=== PATIENT | female | born 1960 | race Caucasian/White ===

== ENCOUNTER 2016-06-19 14:13 | Emergency (ER) | payer MEDICAID ==
[~2016-06-19] VITALS: Ht 167.6 cm; Wt 100.0 kg
[~2016-06-19 14:13] MED LIST: CYMB30CA PO; CYMB60CA PO; DIAZ5TAB PO; FURO1TAB93 PO; GABA300C3 PO; LISI-363 PO; LORTA5 PO; REME15TA PO; TAB-TAB PO; VITA-13 PO
[2016-06-19 14:21] VITALS: BP 155/113; PULSE 89; RESP 16; TEMP 98.7; O2SAT 96
[2016-06-19] MEDS ORDERED: HYDR-3534 PO (15:29)
[2016-06-19] MEDS ORDERED: CIPR-9 PO (15:29)
[2016-06-19] MEDS ORDERED: REME30TA PO (15:29)
[2016-06-19] MEDS ORDERED: GABA300C5 PO (15:29)
[2016-06-19] MEDS ORDERED: DIAZ5 PO (15:29)
[2016-06-19] MEDS ORDERED: CYMB60CA PO (15:29)
[2016-06-19] MEDS ORDERED: MULTTAB67 PO (15:29)
[2016-06-19] MEDS ORDERED: CYMB30CA PO (15:29)
[2016-06-19] MEDS ORDERED: RESP: ALBUTEROL 2.5 MG/IPRATROPIUM 0.5 MG NEB (SCH) INH ONE (15:45)
--- NOTE | 2016-06-19 16:28 | RADHPO ---
EXAM DATE/TIME: 06/19/2016 16:06 [place] COMPARISON: CHEST PA & LAT, December 12, 2015, 14:05. INDICATIONS : Cough. MEDICAL HISTORY : None. SURGICAL HISTORY : Mastectomy, right. Coronary angioplasty ENCOUNTER: Initial ACUITY: 3 weeks PAIN SCORE: 5/10 LOCATION: Bilateral chest FINDINGS: A single view of the chest demonstrates the lungs to be symmetrically aerated without evidence of mas s, infiltrate or effusion. The cardiomediastinal contours are unremarkable. Osseous structures are intact. CONCLUSION: 1. No acute cardiopulmonary findings identified. Trenton Ordonez MD on June 19, 2016 at 16:26 Board Certified Radiologist. This report was verified electronically.
[2016-06-19] MEDS ORDERED: ZITHTAB PO (17:03)
[2016-06-19] MEDS ORDERED: VENTAER INH (17:03)
--- NOTE | 2016-06-19 17:03 | PD ---
HPI Chief Complaint: Cold / Flu Symptoms Time Seen by Provider: 15:45 Travel History International Travel<30 days: No Contact w/Intl Traveler<30days: No Traveled to known affect area: No History of Present Illness HPI Patient comes in complaining of cough and congestion ongoing for approximately 3 weeks. Patient use [id number] medicines for symptomatic relief with some improvement. However, feels her symptoms seem to be getting worse. Cough is occasionally productive. Patient had associated headache and generalized body aches. Denies any chest pain, shortness of breath, nausea or vomiting, diarrhea, back pain, neck pain, loss or change in bowel or bladder, or abdominal pain. PFSH Past Medical History Arthritis: Yes Asthma: No Autoimmune Disease: No Blood Disorders: No Bipolar Disorder: Yes Anxiety: Yes Depression: Yes Heart Rhythm Problems: No Cancer: Yes (RIGHT BREAST) Cardiovascular Problems: Yes (STENT) High Cholesterol: No Chemotherapy: No Chest Pain: Yes Congestive Heart Failure: No COPD: No Cerebrovascular Accident: Yes Diabetes: No Diminished Hearing: No Endocrine: No GERD: No Glaucoma: No Genitourinary: No Headaches: Yes Hepatitis: No Hiatal Hernia: No Hypertension: Yes Immune Disorder: No Kidney Stones: No Musculoskeletal: Yes (ARTHRITIS) Neurologic: Yes (MIGRAINES) Psychiatric: Yes (PTSD) Reproductive: No Respiratory: No Immunizations Current: Yes Migraines: Yes Myocardial Infarction: No Radiation Therapy: No Renal Failure: No Seizures: No Sickle Cell Disease: No Thyroid Disease: No Ulcer: No Influenza Vaccination: No ?: Not : 3 Para: 2 : 1 Tubal Ligation: Yes Past Surgical History Abdominal Surgery: No AICD: No Appendectomy: No Arteriovenous Shunt: No Cardiac Surgery: Yes (1 STENT PLACED IN 2002.) Cholecystectomy: No Ear Surgery: No Endocrine Surgery: No Eye Surgery: No Genitourinary Surgery: No Gynecologic Surgery: No Insulin Pump: No Joint Replacement: No Mastectomy: Yes (RIGHT) Oral Surgery: Yes (T & A) Pacemaker: No Thoracic Surgery: No Tonsillectomy: Yes Other Surgery: Yes (HAND) Social History Alcohol Use: No (STATES "I USED TO") Tobacco Use: Yes (/2 PPD) Substance Use: No Allergies-Medications (Allergen,Severity, Reaction): Coded Allergies: Gabapentin (Unverified Allergy, Severe, RASH, 06/19/16) pt states gabapentin is fine now Penicillin (Verified Allergy, Intermediate, 06/19/16) rash Tetracycline (Verified Allergy, Mild, Rash, 06/19/16) Reported Meds & Prescriptions Reported Meds & Active Scripts Active Ventolin Hfa 18 GM Inh (Albuterol Sulfate) 90 Mcg/Act Aer 2 Puff INH Q4H PRN Zithromax Z-Slim (Azithromycin) 250 Mg Dspk 250 Mg PO DIRECTED 500 MG (2 tabs) day 1, then 1 tab days 2-5. Reported Cipro (Ciprofloxacin HCl) 500 Mg Tab 500 Mg PO BID Lortab (Hydrocodone-Acetaminophen) 7.5-325 Mg Tab 1 Tab PO Q6H PRN Valium (Diazepam) 5 Mg Tab 5 Mg PO TID PRN Remeron (Mirtazapine) 30 Mg Tab 30 Mg PO HS Multiple Vitamin 1 Tab 1 Tab PO DAILY Gabapentin 300 Mg Cap 300 Mg PO TID Cymbalta DR (Duloxetine HCl) 60 Mg Capdr 60 Mg PO DAILY Cymbalta DR (Duloxetine HCl) 30 Mg Capdr 30 Mg PO HS Review of Systems Except as stated in HPI: all other systems reviewed are Neg Physical Exam Narrative GENERAL: Well-developed, overly nourished, in no acute distress, and non-ill appearing. SKIN: Warm and dry. HEAD: Atraumatic. Normocephalic. EYES: Pupils equal and round. EOMI. No scleral icterus. No injection or drainage. ENT: No nasal bleeding or discharge. Mucous membranes pink and moist. Tympanic membranes are pearly duckworth bilaterally. Posterior pharynx nonerythematous. Uvula is midline. No tenderness to facial sinuses to palpation NECK: Trachea midline. No cervical lymphadenopathy. Supple. No nuclear rigidity. CARDIOVASCULAR: Regular rate and rhythm. No murmur appreciated. RESPIRATORY: No accessory muscle use. No respiratory distress. Clear to auscultation. Breath sounds equal bilaterally. MUSCULOSKELETAL: No obvious deformities. No clubbing. No cyanosis. No edema. Full range of motion. NEUROLOGICAL: Awake and alert. No obvious cranial nerve deficits. Motor grossly within normal limits. Normal speech. PSYCHIATRIC: Appropriate mood and affect; insight and judgment normal. Data Data Last Documented VS Vital Signs Date Time Temp Pulse Resp B/P Pulse Ox O2 Delivery O2 Flow Rate FiO2 06/19/16 17:29 92 16 144/83 95 06/19/16 14:21 98.7 Orders Chest, Single Ap (06/19/16 ) Albuterol-Ipratropium Neb (Duoneb Neb) (06/19/16 15:45) MDM Medical Decision Making Medical Screen Exam Complete: Yes Emergency Medical Condition: Yes Differential Diagnosis Pneumonia, bronchitis, upper respiratory infection, allergic sinusitis, other Narrative Course Patients symptom complex is consistent with bronchitis. The patient is non-ill appearing and is in no respiratory distress and comfortable. The patient moves air well and oxygen saturations are normal. Chest x-ray revealed no evidence of obvious consolidation of infiltrate. There is no clinical evidence to suggest pneumonia at this time. Plan of care and management were discussed with the patient who agreed with plan. The patient was instructed to follow up with their physician and instructed to return if worsens, progressively worsening shortness of breath or difficulty breathing, persistent fever, chest pains or discomfort, inability to keep medication or fluids down with or without vomiting , or as needed. The patient has a prior history of hypertension and states has been taking their antihypertensive medications. The patient has no symptoms as well. The patient denied changes in vision, nausea, vomiting, dizziness, weakness or loss of sensation. The patient denied and chest, back, or abdominal pain. The patient also denied any shortness of breath, dyspnea on exertion, orthopnea or PND. The patient denies any edema to extremities. The patients blood pressures at discharge were at an acceptable level. I discussed with the patient that the standard of care is to not adjust antihypertensive medications at this time and for them to follow up with a primary care physician for continued outpatient evaluation and potential adjustment of blood pressure medication at that time. Return warnings were given to the patient and the patient agreed with plan of care. Patient in no obvious distress upon re-evaluation. All pertinent Radiology result(s) discussed with patient. Patient was asked if they wanted to speak to my attending, which the patient did not wish to do at this time. Any questions/ concerns in reference to patient diagnosis/condition discussed and clarified prior to patient's discharge. Reinforced sheer importance of close follow up with patient's primary physician or primary care clinic. Instructed patient to return to ED immediately, if symptoms return/worsen. Pt showed understanding of above instructions. Further instructions and recommendations were detailed in discharge paperwork. Pt ambulated without difficulty out of ED at discharge. Diagnosis Primary Impression: Bronchitis Patient Instructions: Acute Bronchitis (ED), General Instructions Additional Instructions: Follow-up with your primary care physician next week for reevaluation and for reevaluation of elevated blood pressure noted here today. Take all medication as prescribed. Return to the emergency department if symptoms get worse. Med/Other Pt SpecificInfo: Prescription(s) given Scripts Albuterol 18 GM Inh (Ventolin Hfa 18 GM Inh)90 Mcg/Act Aer2 Puff INH Q4H PRN ( COUGH) #1 INHALER Ref 0 Prov:Charles Patino MD 06/19/16 Azithromycin (Zithromax Z-Slim)250 Mg Xtib015 Mg PO DIRECTED #1 DSPK Ref 0 500 MG (2 tabs) day 1, then 1 tab days 2-5. Prov:Charles Patino MD 06/19/16 Disposition: 01 DISCHARGE HOME Condition: Stable Alexander Jesus Jun 19, 2016 17:03
[2016-06-19 17:29] VITALS: BP 144/83
== END 2016-06-19 17:29 | disposition home or self-care (01) ==
LOC: PHEFT 14:13
DX: J40 Bronchitis, not specified as acute or chronic (principal); I10 Essential (primary) hypertension; F17.200 Nicotine dependence, unspecified, uncomplicated
CPT/HCPCS: 71010; 94664; 99283